=== PATIENT | female | born 1995 | race African-American/Black ===

== ENCOUNTER 2017-10-30 19:12 | Emergency (ER) | payer OTHER ==
[~2017-10-30] VITALS: Ht 172.7 cm; Wt 86.1 kg
[2017-10-30 19:19] VITALS: TEMP 36.8; Ht 172.7 cm; Wt 86.1 kg
[2017-10-30] MEDS ORDERED: FAMOTIDINE 20MG/5ML IV PUSH IV STA (20:33)
[2017-10-30] MEDS ORDERED: SODIUM CHLORIDE 0.9% 1000ML 1,000 ML IV STA (20:33)
[2017-10-30] MEDS ORDERED: ONDANSETRON INJ 2 MG/ML 2 ML VIAL IV STA (20:33)
[2017-10-30 20:44] LABS: BASO % 0.1 %; BASO ABS # 0.01 K/uL (0-0.2); EOS % 1.5 %; EOS ABS # 0.12 K/uL (0-0.5); HEMATOCRIT 44.6 % (37-47); HEMOGLOBIN 14.8 g/dL (12.0-16.0); IG# 0.03 K/uL (0.00-0.02); LYMPH % 12.3 %; MEAN CELL VOLUME 87.1 fL (80-100); MEAN CORPUSCULAR HEMOGLOBIN 28.9 pg (25-34); MEAN CORPUSCULAR HGB CONC 33.2 g/dl (32-36); MEAN PLATELET VOLUME 10.1 fL (7.4-10.4); MONO % 3.8 %; MONO ABS # 0.31 K/uL (0.11-0.59); NEUT % 81.9 %; NEUT ABS # 6.66 K/uL (1.4-6.5); PLATELET COUNT 294 K/uL (130-400); RED CELL DISTRIBUTION WIDTH SD 41.8 fL (36.4-46.3); WHITE BLOOD COUNT 8.13 K/uL (4.8-10.8)
[2017-10-30 20:59] LABS: ALBUMIN 4.1 gm/dl (3.4-5.0); CALCIUM 9.1 mg/dl (8.5-10.1); CREATININE 0.76 mg/dl (0.60-1.20); POTASSIUM 3.4 mmol/L (3.5-5.1)
[2017-10-30 21:02] LABS: TOTAL PROTEIN 8.5 gm/dl (6.4-8.2)
[2017-10-30 21:38] LABS: INFLUENZA B ANTIGEN Neg for Influ B (NEG)
[2017-10-30] MEDS ORDERED: ONDA4TAB10 SL (22:34)
[2017-10-30] MEDS ORDERED: FAMO20TA9 PO (22:35)
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
[2017-10-30 22:52] VITALS: BP 106/66; PULSE 88; O2SAT 98
== END 2017-10-30 22:53 | disposition home or self-care (01) ==
LOC: C.EDB 19:15
DX: K29.70 Gastritis, unspecified, without bleeding (principal)